=== PATIENT | female | born 1990 | race Caucasian/White ===

== ENCOUNTER → 2020-08-13 | Outpatient (CLI) | payer BC ==
[2020-08-14 12:55] LABS: Beef IgE <0.10 kU/L (<0.10); Beef IgE Class CLASS 0; Pork IgE Class CLASS 0
[2020-08-14 12:56] LABS: Chicken IgE Class CLASS 0; Cow's Milk IgE Class CLASS 0; Egg White IgE <0.10 kU/L (<0.10); Gluten IgE Class CLASS 0; Peanut IgE <0.10 kU/L (<0.10); Potato IgE <0.10 kU/L (<0.10); Potato IgE Class CLASS 0; Soybean IgE <0.10 kU/L (<0.10); Yeast Bakers/Brew IgE <0.10 kU/L (<0.10); Yeast Bakers/Brew IgE Class CLASS 0
[2020-08-15 19:45] LABS: Wheat IgG 14.1 mcg/mL (< 2.0)
[2020-08-15 19:46] LABS: Peanut IgG 2.6 mcg/mL (< 2.0); Soybean IgG <2.0 mcg/mL (< 2.0)
[2020-08-15 19:47] LABS: Beef IgG 9.6 mcg/mL (< 2.0); Cow's Milk IgG 70.3 mcg/mL (< 2.0); Potato IgG <2.0 mcg/mL (< 2.0)
[2020-08-15 19:48] LABS: Chicken Meat IgG <2.0 mcg/mL (< 2.0); Corn IgG 2.2 mcg/mL (< 2.0); Tomato IgG <2.0 mcg/mL (< 2.0)
== END | disposition home or self-care (01) ==
LOC: LABWHC1 13:59
PROVIDERS: ATTEND Otolaryngology
DX: J30.89 Other allergic rhinitis (principal)
CPT/HCPCS: 36415; 86001; 86003